=== PATIENT | female | born 2000 | race Two or more races ===

== ENCOUNTER 2024-05-01 14:03 | Emergency (ER) | payer OTHER ==
[~2024-05-01] VITALS: Ht 152.4 cm; Wt 59.0 kg
[2024-05-01 16:26] LABS: HEMATOCRIT 35.7 % (36.0-45.00); HEMOGLOBIN 12.4 g/dL (12.0-15.00); MEAN CELL VOLUME 85.8 fL (80.00-100.00); MEAN CORPUSCULAR HEMOGLOBIN 29.9 pg (27.00-32.0); MEAN CORPUSCULAR HGB CONC 34.9 g/dl (32.0-36.0); PLATELET COUNT 239 K/uL (150-450); RED BLOOD COUNT 4.16 M/uL (4.00-6.00); RED CELL DISTRIBUTION WIDTH 13.7 % (11.5-14.5)
[2024-05-01 19:05] LABS: URINE APPEARANCE Clear; URINE BILIRRUBIN Negative (NEGATIVE); URINE BLOOD Negative; URINE COLOR Yellow; URINE GLUCOSE Negative (NEGATIVE); URINE LEUKOCYTE Negative; URINE NITRATE Negative; URINE PROTEIN Negative (NEGATIVE); URINE UROBILINOGEN 0.2 E.U./dl
[2024-05-01 19:12] LABS: URINE BACTERIA 49.1 uL (0.0-1933); URINE EPITHELIAL CELLS 6.9 uL (0.0-38.8); URINE WBC 2.1 uL (0.0-23.2)
[2024-05-01 20:00] LABS: URINE RBC 0.1 uL (0.0-20.8)
== END 2024-05-01 21:19 | disposition home or self-care (01) ==
LOC: ER 14:04
PROVIDERS: General Practice
DX: O20.8 Other hemorrhage in early pregnancy (principal); Z88.6 Allergy status to analgesic agent